=== PATIENT | female | born 1955 | race African-American/Black ===

== ENCOUNTER 2017-07-12 19:52 | Emergency (ER) | payer OTHER ==
[~2017-07-12] VITALS: Ht 162.6 cm; Wt 96.2 kg
[2017-07-12] MEDS ORDERED: TYLENOL EXTRA500 MG ORAL (20:03)
[2017-07-12] MEDS ORDERED: METFORMIN HCL1000 M1 ORAL (20:03)
[2017-07-12] MEDS ORDERED: GLIPIZIDE5 MG ORAL (20:03)
[2017-07-12] MEDS ORDERED: ASPIRIN81 MG ORAL (20:03)
[2017-07-12] MEDS ORDERED: ACETAMINOPHEN325 M1 ORAL (20:03)
[2017-07-12] MEDS ORDERED: CEPHALEXIN500 M1 ORAL (20:03)
[2017-07-12] MEDS ORDERED: Isovue-300 100ml vial INJ PRN (20:15)
[2017-07-12] MEDS ORDERED: Ketorolac 30mg Inj IV ONE (20:15)
[2017-07-12] MEDS ORDERED: Ampicillin/Sulbactam Sod 3 GM in NS 110 ML IVPB ONE (20:15)
[2017-07-12] MEDS ORDERED: Dexamethasone 4mg/ml vial IVP ONE (20:15)
--- NOTE | 2017-07-12 20:18 | Emergency Room Report ---
History of Present Illness General Chief Complaint: Neck Pain Source: Patient Present Illness HPI Patient present with complaints of sore throat and neck pain She reports that last week she had been complaining of sore throat saw her primary physician and started taking antibiotics on Tuesday Since then she has felt that the pain is now more increasingly localized to the lower neck area upper trapezius region Denies any chest pain Has pain with swallowing Denies any other headache Denies any photophobia Allergies: Coded Allergies: No Known Allergies (Unverified , 07/12/17) Patient History Past Medical History: see triage record Pertinent Family History: none Last Menstrual Period: None Reviewed Nursing Documentation: PMH: Agreed; PSxH: Agreed Nursing Documentation-PMH Hx Diabetes: Yes Review of Systems All Other Systems: negative except mentioned in HPI Physical Exam Vital Signs Date Time Temp Pulse Resp B/P (MAP) Pulse Ox O2 Delivery O2 Flow Rate FiO2 07/12/17 19:55 98.8 73 18 160/79 99 Room Air 98.8 Sp02 EP Interpretation: reviewed, normal General Appearance: well appearing, no apparent distress Head: normocephalic, atraumatic Eyes: bilateral eye PERRL, bilateral eye EOMI ENT: hearing grossly normal, TMs + canals normal, uvula midline, pharyngeal erythema - No obvious pustule Neck: full range of motion, supple, no meningismus - Patient does not show signs of meningismus however she has increased discomfort on paraspinal area, also trapezius appears to be tender on palpation, no bony tend Respiratory: lungs clear, normal breath sounds, no rhonchi, no respiratory distress, no retraction, no accessory muscle use Cardiovascular #1: normal peripheral pulses, regular rate, rhythm, no edema, no gallop, no JVD, no murmur Gastrointestinal: normal bowel sounds, non tender, soft, no mass, no organomegaly, non-distended, no guarding, no hernia, no pulsatile mass, no rebound Genitourinary: no CVA tenderness Musculoskeletal: normal inspection Neurologic: oriented x3, responsive, room cleaner III-XII nml as tested, motor strength/ tone normal, sensory intact Psychiatric: mood/affect normal Skin: normal color, no rash, warm/dry, palpation normal Lymphatic: normal inspection, no adenopathy Medical Decision Making Diagnostic Impression: Primary Impression: Pharyngitis Additional Impression: Acute infective tonsillitis ER Course Given the patient's complaints and presentation Multiple differentials including but not limited to retropharyngeal abscess, peritonsillar abscess were considered Other differentials such as meningitis also considered however patient is afebrile does not have any other systemic complaints Imaging was obtained showed some tonsil inflammation no other abscess blood work is at baseline level patient has done better throughout her stay and is stable for close outpatient follow-up Labs Test 07/12/17 20:25 White Blood Count 7.1 K/UL (4.8-10.8) Red Blood Count 4.34 M/UL (4.20-5.40) Hemoglobin 11.7 G/DL (12.0-16.0) Hematocrit 36.2 % (37.0-47.0) Mean Corpuscular Volume 83 FL (80-99) Mean Corpuscular Hemoglobin 26.9 PG (27.0-31.0) Mean Corpuscular Hemoglobin Concent 32.3 G/DL (32.0-36.0) Red Cell Distribution Width 12.3 % (11.6-14.8) Platelet Count 322 K/UL (150-450) Mean Platelet Volume 6.7 FL (6.5-10.1) Neutrophils (%) (Auto) 54.6 % (45.0-75.0) Lymphocytes (%) (Auto) 36.5 % (20.0-45.0) Monocytes (%) (Auto) 6.2 % (1.0-10.0) Eosinophils (%) (Auto) 2.0 % (0.0-3.0) Basophils (%) (Auto) 0.7 % (0.0-2.0) Sodium Level 138 MMOL/L (136-145) Potassium Level 4.2 MMOL/L (3.5-5.1) Chloride Level 101 MMOL/L (98-107) Carbon Dioxide Level 27 MMOL/L (21-32) Anion Gap 10 mmol/L (5-15) Blood Urea Nitrogen 11 mg/dL (7-18) Creatinine 0.9 MG/DL (0.55-1.30) Estimat Glomerular Filtration Rate > 60 mL/min (>60) Glucose Level 182 MG/DL (74-106) Calcium Level 9.7 MG/DL (8.5-10.1) CT/MRI/US Diagnostic Results CT/MRI/US Diagnostic Results : Impression CT neck: mild tonsil edema patent airway Last Vital Signs Date Time Temp Pulse Resp B/P (MAP) Pulse Ox O2 Delivery O2 Flow Rate FiO2 07/12/17 19:55 98.8 73 18 160/79 99 Room Air 98.8 Status: improved Disposition: HOME, SELF-CARE Condition: Improved Scripts Prednisone* (PREDNISONE*) 20 Mg Tablet 20 MG ORAL BID, #8 TAB Prov: Christine Petty DO 07/12/17 Amoxicillin/Potassium Clav 875-125* (AUGMENTIN 875-125 TABLET*) 1 Each Tablet 1 TAB ORAL TWICE A DAY, #14 TAB Prov: Christine Petty DO 07/12/17 Ibuprofen* (MOTRIN*) 600 Mg Tablet 600 MG ORAL Q8H PRN for For Pain, #20 TAB 0 Refills Prov: Christine Petty DO 07/12/17 Additional Instructions: Patient is provided with the discharge instructions notified to follow up with primary doctor in the next 2-3 days otherwise return to the er with any worsening symptoms. Please note that this report is being documented using [employer] technology. This can lead to erroneous entry secondary to incorrect interpretation by the dictating instrument. Christine Petty DO July 12, 2017 20:18
[2017-07-12 20:29] VITALS: BP 148/70
[2017-07-12 20:34] LABS: BASOPHILS % (AUTO) 0.7 % (0.0-2.0); HEMATOCRIT 36.2 % (37.0-47.0); HEMOGLOBIN 11.7 G/DL (12.0-16.0); LYMPHOCYTES % (AUTO) 36.5 % (20.0-45.0); MEAN CORPUSCULAR VOLUME 83 FL (80-99); MONOCYTES % (AUTO) 6.2 % (1.0-10.0); NEUTROPHILS % (AUTO) 54.6 % (45.0-75.0); PLATELET COUNT 322 K/UL (150-450); RED BLOOD COUNT 4.34 M/UL (4.20-5.40); RED CELL DISTRIBUTION WIDTH 12.3 % (11.6-14.8); WHITE BLOOD COUNT 7.1 K/UL (4.8-10.8)
[2017-07-12 20:46] LABS: ANION GAP 10 mmol/L (5-15); BLOOD UREA NITROGEN 11 mg/dL (7-18); CALCIUM 9.7 MG/DL (8.5-10.1); CARBON DIOXIDE 27 MMOL/L (21-32); CHLORIDE 101 MMOL/L (98-107); CREATININE 0.9 MG/DL (0.55-1.30); POTASSIUM 4.2 MMOL/L (3.5-5.1); SODIUM 138 MMOL/L (136-145)
[2017-07-12] MEDS ORDERED: IBUPROFEN600 MG ORAL (21:53)
[2017-07-12] MEDS ORDERED: PREDNISONE20 MG ORAL (21:53)
[2017-07-12] MEDS ORDERED: AUGMENTIN 875-1 EAC1 ORAL (21:53)
[2017-07-12 22:28] VITALS: BP 148/70
--- NOTE | 2017-07-13 12:50 | Diagnostic Imaging Report ---
Indication: Neck pain. Technique: Continuous helical imaging of the neck was obtained transaxially from the skull base to the upper thoracic spine during intravenous administration of nonionic contrast. 2-D coronal and sagittal reformatted images were obtained. Total Dose length Product (DLP): 562.[address] Dose Index Volume (CTDIvol): 20.06 mGy Comparison: None Findings: Skull base structures are unremarkable. Mastoids are clear bilaterally. The visualized nasopharynx and hypopharynx appears unremarkable. The palatine tonsils are prominent bilaterally which may be due to mild tonsillitis. There is no tonsillar abscess. There is no mass or asymmetry identified. Supraglottic structures including the epiglottis and aryepiglottic folds appear normal. The larynx is unremarkable. The subglottic airway is clear. Small nodes are seen in the neck nonspecific, probably reactive or inflammatory. The parotid, thyroid, submandibular and sublingual glands appear unremarkable. Impression: Suspect mild tonsillitis with prominence of the palatine tonsils. No tonsillar abscess identified. Correlate clinically. [facility] has communicated the preliminary results to the Emergency Department. Their findings are largely concordant with this report. The CT scanner at [facility] is accredited by the [employer] and the scans are performed using dose optimization techniques as appropriate to a performed exam including Automatic Exposure control.
== END 2017-07-12 22:28 | disposition home or self-care (01) ==
LOC: EMR 21:36
DX: J02.9 Acute pharyngitis, unspecified (principal); J03.90 Acute tonsillitis, unspecified; E11.9 Type 2 diabetes mellitus without complications
CPT/HCPCS: 36415; 70491; 80048; 85025; 96361; 96374; 96375; 99284; J0295; J1100; J1885; Q9967

== ENCOUNTER 2019-01-15 19:12 | Emergency (ER) | payer OTHER ==
[~2019-01-15] VITALS: Ht 162.6 cm; Wt 92.5 kg
[~2019-01-15 19:12] MED LIST: ACETAMINOPHEN325 M1 ORAL; ASPIRIN81 MG ORAL; AUGMENTIN 875-1 EAC1 ORAL; CEPHALEXIN500 M1 ORAL; GLIPIZIDE5 MG ORAL; IBUPROFEN600 MG ORAL; METFORMIN HCL1000 M1 ORAL; PREDNISONE20 MG ORAL; TYLENOL EXTRA500 MG ORAL
[2019-01-15 19:24] VITALS: BP 156/81
--- NOTE | 2019-01-15 19:25 | NUR ---
ED Nurse Note: Patient walked in to ER with limping gait c/o right foot pain 07/31. Denyed fall, or any injury. Patient presented calm, AAO x4, VSS at this time.
--- NOTE | 2019-01-15 19:42 | Emergency Room Report ---
History of Present Illness General Chief Complaint: Pain Source: Patient, Medical Record Present Illness HPI 63 YO Female presents to the ED c/o 07/31 in severity localized pain to the middle plantar aspect of the right foot x 2 days. Pt. denies trauma or fall. She reports she has been doing a lot of additional walking and standing on her feet the last 3 days. She reports some swelling. Denies open wounds or suspicion of ST FB. Denies bruising, erythema, warmth, blisters or rashes. Pt. with hx of DM that has been well controlled. Denies neuropathy. Pt. reports standing exacerbates her pain, She denies inability to bear weight. She has tried taking Tylenol which did not provide relief. Pt. has no other aggravating or relieving factors at this time. She denies calf pain/ swelling, SOB, CP or weakness or LABOY. Allergies: Coded Allergies: No Known Allergies (Unverified , 07/12/17) Patient History Past Medical History: see triage record, DM Past Surgical History: none Pertinent Family History: none, DM Now: No Reviewed Nursing Documentation: PMH: Agreed; PSxH: Agreed Nursing Documentation-PMH Past Medical History: No History, Except For Hx Diabetes: Yes - NIDDM Review of Systems All Other Systems: negative except mentioned in HPI Physical Exam Vital Signs Date Time Temp Pulse Resp B/P (MAP) Pulse Ox O2 Delivery O2 Flow Rate FiO2 01/15/19 19:17 98.1 72 18 156/81 (106) 97 Room Air Sp02 EP Interpretation: reviewed, normal General Appearance: well appearing, no apparent distress, alert, GCS 15, non- toxic Head: normocephalic, atraumatic Eyes: bilateral eye normal inspection, bilateral eye PERRL ENT: hearing grossly normal, normal voice Neck: full range of motion Respiratory: lungs clear, normal breath sounds, speaking full sentences Cardiovascular #1: regular rate, rhythm, no edema, normal capillary refill Cardiovascular #2: 2+ dorsalis pedis (R) Musculoskeletal: normal range of motion, digits/nails normal, no calf tenderness, gait/station normal - some mild compensation favoring the right foot. , tender - plantar aspect of the right foot primarily in mid foot and toward heel. no localized bonty ttp, no ST induration, open wounds or skin hypertrophy suggestive of ST FB. No bruises, no obvious deformity. , swelling - mild diffuse ST swelling of the plantar soft tissues. Neurologic: alert, motor strength/tone normal, oriented x3, sensory intact, responsive, speech normal Psychiatric: judgement/insight normal Skin: no rash, normal color, normal inspection Medical Decision Making PA Attestation Dr. Donovan is my supervising Physician whom patient management has been discussed with. Diagnostic Impression: Primary Impression: Plantar fasciitis of right foot ER Course 63 YO Female presents to the ED c/o 07/31 in severity localized pain to the middle plantar aspect of the right foot x 2 days. Pt. denies trauma or fall. She reports she has been doing a lot of additional walking and standing on her feet the last 3 days. She reports some swelling. Denies open wounds or suspicion of ST FB. Denies bruising, erythema, warmth, blisters or rashes. Pt. with hx of DM that has been well controlled. Denies neuropathy. Pt. reports standing exacerbates her pain, She denies inability to bear weight. She has tried taking Tylenol which did not provide relief. Pt. has no other aggravating or relieving factors at this time. She denies calf pain/ swelling, SOB, CP or weakness or LABOY. Ddx considered but are not limited to Fracture, dislocation, contusion, Sprain/ Strain/Spasm, plantar fasciitis Vital signs: are WNL, pt. is afebrile H&PE are most consistent with foot plantar fasciitis. no trauma or fall. ORDERS: - X-ray not emergently warranted given absence of trauma or fall. and non- localized pain along the plantar fascia -diffusely. NO open wounds or induration suggestive of ST FB. Pt. appeared upset, that x-rays were not ordered. I explained to pt. the medical decision making, however offered her an x-ray, but she declined. ED INTERVENTIONS: - Motrin PO - Pt. was offered a cane for which she also declined. --D/w pt. that standard of care is NSAID, she will be rx'd small qty for anti- inflammatory benefits and pain control, not meant to be used for longer than 1 week. -I do not identify an emergent condition at this time. With current presentation , pt. is stable for close outpatient follow up and conservative treatment. D/ w pt. to return promptly to ED with worsening or new symptoms.- Pt. verbalizes' understanding and agreement with proposed treatment plan. DISCHARGE: At this time pt. is stable for d/c to home. Will provide printed patient care instructions, and any necessary prescriptions. Care plan and follow up instructions have been discussed with the patient prior to discharge. Last Vital Signs Date Time Temp Pulse Resp B/P (MAP) Pulse Ox O2 Delivery O2 Flow Rate FiO2 01/15/19 19:24 98.1 67 18 156/81 97 Room Air Disposition: HOME, SELF-CARE Condition: Stable Scripts Ibuprofen* (MOTRIN*) 600 Mg Tablet 600 MG ORAL THREE TIMES A DAY, #15 TAB 0 Refills Prov: Gloria Adame 01/15/19 Departure Forms: Return to Work Return to Work Date: Jan 19, 2019 Work Restrictions: No Heavy Lifting, No Prolonged Standing Other Restrictions: limited walking/standing. May return Sooner if Symptoms have resolved. Return to Full Activity: Jan 23, 2019 Patient Instructions: Plantar Fasciitis Additional Instructions: Take medications as directed. Follow up with a Primary Care Provider in 3-5 days, even if your symptoms have resolved. Return sooner to ED if new symptoms occur, or current symptoms become worse. - Please note that this Emergency Department Report was dictated using [employer] cleaner hand technology software, occasionally this can lead to erroneous entry secondary to interpretation by the dictation equipment. Gloria Adame Jan 15, 2019 19:41
[2019-01-15] MEDS ORDERED: IBUPROFEN600 MG ORAL (19:43)
--- NOTE | 2019-01-15 20:00 | NUR ---
ED Nurse Note: Pt cleared by health care Provider for discharge. DC instructions/prescription was given and explained to pt and verbalized understanding of teachings. All medical deviecs such as ID band removed. Pt is AAO x4, ambulatory and left with all personal belongings.
== END 2019-01-15 20:00 | disposition home or self-care (01) ==
LOC: EMR 20:00
DX: M72.2 Plantar fascial fibromatosis (principal); E11.9 Type 2 diabetes mellitus without complications
CPT/HCPCS: 99282

== ENCOUNTER 2019-04-25 10:20 | Emergency (ER) | payer OTHER ==
[~2019-04-25] VITALS: Ht 162.6 cm; Wt 95.3 kg
[2019-04-25 10:25] VITALS: BP 121/69
--- NOTE | 2019-04-25 10:33 | NUR ---
ED Nurse Note: patient walked into ED from home c/o coughing, sorethroat, fever for 1 week. patient is alert awake x4, ambulatory, able to speak in full sentences.
[2019-04-25] MEDS ORDERED: Albuterol ud Inhalation HHN ONE (10:45)
[2019-04-25 11:00] VITALS: BP 120/72
[2019-04-25] MEDS ORDERED: ZITHROMAX250 MG ORAL (11:04)
[2019-04-25] MEDS ORDERED: ALBUTEROL2.5 MG/3 M HHN (11:08)
--- NOTE | 2019-04-25 11:08 | Emergency Room Report ---
History of Present Illness General Chief Complaint: Upper Respiratory Illness Source: Patient Present Illness HPI Patient is a 63-year-old female past medical history of diabetes and thyroid disease who presents to the ER complaining of flulike symptoms for the past few days. Patient complains of fever, cough, congestion and body aches. She states that her boss was recently diagnosed with pneumonia. She denies any shortness of breath or chest pain. She denies any neck stiffness or altered mental status. She denies any recent travel or history of smoking. She denies any abdominal pain nausea or vomiting Allergies: Coded Allergies: No Known Allergies (Unverified , 07/12/17) Patient History Past Medical History: DM, other - Thyroid disease Past Surgical History: none Social History: Denies: smoking, alcohol use, drug use Nursing Documentation-[facility] Past Medical History: No History, Except For Hx Diabetes: Yes - NIDDM Review of Systems All Other Systems: negative except mentioned in HPI Physical Exam Vital Signs Date Time Temp Pulse Resp B/P (MAP) Pulse Ox O2 Delivery O2 Flow Rate FiO2 04/25/19 10:25 100.2 103 19 121/69 97 Room Air 04/25/19 10:56 21 Sp02 EP Interpretation: reviewed, normal General Appearance: no apparent distress, alert, GCS 15, non-toxic Head: normocephalic, atraumatic Eyes: bilateral eye normal inspection, bilateral eye PERRL ENT: hearing grossly normal, normal pharynx, no angioedema, normal voice Neck: full range of motion, supple/symm/no masses Respiratory: chest non-tender, speaking full sentences, wheezing Cardiovascular #1: regular rate, rhythm, no edema Cardiovascular #2: 2+ carotid (R), 2+ carotid (L), 2+ radial (R), 2+ radial (L) , 2+ dorsalis pedis (R), 2+ dorsalis pedis (L) Gastrointestinal: normal bowel sounds, non tender, soft, non-distended, no guarding, no rebound Rectal: deferred Genitourinary: normal inspection, no CVA tenderness Musculoskeletal: back normal, normal range of motion, calf tenderness, gait/ station normal, non-tender Neurologic: alert, motor strength/tone normal, oriented x3, sensory intact, responsive, speech normal Psychiatric: judgement/insight normal, memory normal, mood/affect normal, no suicidal/homicidal ideation Skin: no rash Lymphatic: no adenopathy Medical Decision Making Diagnostic Impression: Primary Impression: Bronchopneumonia ER Course Patient's x-ray demonstrates no acute cardiopulmonary pathology. Patient given prescription for Z-Alfonso as well as albuterol inhaler. After discussing risks and benefits of further diagnostics, treatment plans, as well as indications for and risks of admission, the patient is agreeable to being discharged home. I have explained that their evaluation and treatment in the emergency department today is an important step towards them achieving better health but that their evaluation today is not intended to replace further evaluation and treatment by a physician in their local clinic. I have explained that while the current findings suggest no immediate life threatening emergency they will require further evaluation and treatment by a physician of their choice in their area. They understand that it will be necessary for them to review the final reports of their ED visit with their clinic physician. We have reviewed indications for return to the Emergency Department. I have explained that additional time may need to pass and/or additional testing as an outpatient may be necessary before a definitive diagnosis can be made. They tell me they are willing to follow up as instructed within the timeframe I recommend. They appear to understand what we discussed. Additionally they understand that if they are unable to be seen by an outpatient physician they are welcome, and in fact should, return to the Emergency Department for a repeat evaluation. The patient is stable at time of discharge. Chest X-Ray Diagnostic Results Chest X-Ray Diagnostic Results : Chest X-Ray Ordered: Yes # of Views/Limited/Complete: 1 View Indication: Other - cough EP Interpretation: Yes - MD Maeve Interpretation: no consolidation, no effusion, no pneumothorax, other - Cardiomegaly Impression: No acute disease Last Vital Signs Date Time Temp Pulse Resp B/P (MAP) Pulse Ox O2 Delivery O2 Flow Rate FiO2 04/25/19 10:56 94 18 Room Air 21 04/25/19 10:56 99 97 04/25/19 10:25 100.2 121/69 (86) Disposition: HOME, SELF-CARE Condition: Stable Scripts Albuterol Sulfate* (ALBUTEROL SULFATE HHN*) 2.5 Mg/3 Ml Vial.neb 2.5 MG HHN Q4H PRN for Shortness of Breath, #25 VIAL Prov: Araseli Mcfarlane M.D. 04/25/19 Azithromycin* (ZITHROMAX*) 250 Mg Tablet 250 MG ORAL DAILY, #6 TAB 0 Refills Take two tables once daily for 1 day, then one tablet once daily for 4 days. Prov: Araseli Mcfarlane M.D. 04/25/19 Referrals: [facility] Departure Forms: Return to Work Return to Work in (Days): 3 Return to Work Date: Apr 28, 2019 Other Restrictions: Do not return to work if you have fever. Patient Instructions: Upper Respiratory Infection, Adult Araseli Mcfarlane M.D. Apr 25, 2019 11:08
[2019-04-25 11:18] VITALS: BP 120/72
--- NOTE | 2019-04-25 11:18 | NUR ---
ER DISCHARGE NOTE: Patient is cleared to be discharged per ERMD DR FOWLER, pt is aox4, on room air, with stable vital signs. pt was given dc and prescription instructions, pt was able to verbalize understanding, pt id band removed without complications. pt is able to ambulate with steady gait. pt took all belongings.
--- NOTE | 2019-04-25 12:16 | Diagnostic Imaging Report ---
Indication: Cough Comparison: None A single view chest radiograph was obtained. Findings: Cardiomediastinal appearance is within normal limits for age. The lungs are clear. Pulmonary vascularity is appropriate. The diaphragmatic contour is smooth and costophrenic angles are sharp. No pleural effusions are identified. The bones are unremarkable. Impression: No acute findings
== END 2019-04-25 11:18 | disposition home or self-care (01) ==
LOC: EMR 10:58
DX: J18.0 Bronchopneumonia, unspecified organism (principal); E11.9 Type 2 diabetes mellitus without complications; E07.9 Disorder of thyroid, unspecified
CPT/HCPCS: 71045; Z7502; 99284